=== PATIENT | female | born 1990 | race Caucasian/White ===

== ENCOUNTER 2020-12-13 17:24 | Emergency (ER) | payer BC, SELFPAY ==
[2020-12-13 17:35] VITALS: BP 150/58; PULSE 87; RESP 16; TEMP 37; O2SAT 100
--- NOTE | 2020-12-13 17:50 | ED.GENADULT ---
HPI - General Adult General Chief complaint: Skin/Abscess/Foreign Body Stated complaint: splinter in finger Time Seen by Provider: 12/13/20 17:50 Source: patient and RN notes reviewed Mode of arrival: ambulatory Limitations: no limitations History of Present Illness HPI narrative: 30-year-old 7 weeks female presents with complaints of right index (2nd) finger splinters for 1 hour. Sonia report while sanding a door frame she obtained several splinters in RT index (2nd) finger, one is a through-though. No treatment. Denies numbness or tingling. No weakness of finger. Denies fever. Denies immobility. Exacerbation is movement and palpation of finger. No relieving factor. Denies drainage. Dominant hand is the RIGHT HAND. The patient reports she have not been diagnosed with COVID-19. The patient reports she is not waiting for the results of a COVID-19 lab test. The patient reports she do not have chills, weakness, or fatigue. The patient reports she do not have a new or worsening cough or shortness of breath. Denies chest pain. The patient reports she do not have any rhinorrhea, congestion, sore throat, loss of taste or smell, nausea, vomiting, abdominal pain, and diarrhea. Tolerating po intake well. Denies recent traveling. Denies concerns for COVID-19 or exposures been home with limited outdoor exposure except for essential household needs and return home. At this time, patient is not suspected of having COVID-19. Some parts of this dictation were generated by voice recognition software and may contain typographical and/or grammatical inaccuracies. Related Data Home Medications Medication Instructions Recorded Confirmed progesterone 5 mg IM DAILY 12/13/20 12/13/20 Allergies Allergy/AdvReac Type Severity Reaction Status Date / Time No Known Allergies Allergy Verified 12/13/20 17:35 Review of Systems Review of Systems: Narrative: CONSTITUTIONAL: Denies fever, chills, sweats. EYES: Denies visual changes, redness, discharge. ENT: Denies rhinorrhea, congestion, sore throat, otalgia. CARDIOVASCULAR: Denies chest pain, palpitations, edema. RESPIRATORY: Denies dyspnea, wheezing, cough. GASTROINTESTINAL: Denies abdominal pain, nausea, vomiting, diarrhea. GENITOURINARY: Denies dysuria, hematuria, abnormal discharge SKIN: Denies rash or itching. Complains of right index (2nd) finger splinters, tenderness, and redness. Denies drainage, swelling. MUSCULOSKELETAL: Denies acute back pain or myalgia. NEUROLOGIC: Denies numbness or focal weakness. PSYCHIATRIC: Denies anxiety or depression. All other systems reviewed are negative, except as documented in HPI and below. FOR[facility]LY [facility] Past Medical History Medical History (Updated 12/14/20 @ 00:01 by Ozzie Elder) Asthma child gamez Vaginal delivery X3 Surgical History Surgical History (Updated 12/13/20 @ 18:22 by JESUS Walker) No significant past surgical history Family History Family History (Updated 12/13/20 @ 18:23 by JESUS Walker) Father Diabetes mellitus Hypertension Mother Hypertension Social History Social History (Updated 12/13/20 @ 18:24 by JESUS Walker) Smoking status: Never smoker Tobacco type: cigarettes Second hand tobacco smoke exposure: No Alcohol intake: former Alcohol use details: no longer using ETOH due to being pregrant Substance use: never Living arrangements: with family Occupation/Education: unemployed Gender identity (if verbalized by the patient): Female Sexual Orientation (if Verbalized by the Patient): Straight or Heterosexual Comments At time of signature, agree with nurse past medical, surgical, social, and family history. There is no relevant family history pertinent to the presenting complaint. Exam Narrative: Exam Narrative: GENERAL: This is a well-nourished, well-developed patient, in no apparent distress. HEAD: Normocephalic, atraumatic. EYES: P
[2020-12-13] MEDS: TETANUS,DIPHTHERIA,AC PERTUSSIS ADULT (0.5 ML) BOOSTRIX IM (18:01)
[2020-12-13 18:30] VITALS: BP 128/70
== END 2020-12-13 18:30 | disposition home or self-care (01) ==
PROVIDERS: Emergency Provider Nurse Practitioner Family; PCP Family Medicine
DX: S61.240A Puncture wound with foreign body of right index finger without damage to nail, initial encounter (principal); W45.8XXA Other foreign body or object entering through skin, initial encounter; Z23 Encounter for immunization
CPT/HCPCS: 90471; 90715; 99213; G0463